=== PATIENT | female | born 1950 | race Hispanic/Latino ===

== ENCOUNTER → 2018-01-29 | Outpatient (CLI) | payer MEDICARE ==
--- NOTE | 2018-02-16 02:24 | Polysomnography ---
DATE OF STUDY: January 29, 2018 SPLIT-NIGHT POLYSOMNOGRAM REFERRING PHYSICIAN: Dr. Ramiro Loco Dictation cutoff, 00:35 seconds. ANAHI Certified in Sleep Medicine Job#: [id number]
--- NOTE | 2018-02-16 09:22 | Polysomnography ---
DATE OF STUDY: January 29, 2018 SPLIT-NIGHT POLYSOMNOGRAM REFERRING PHYSICIAN: Dr. Loco HISTORY: This is a 67-year-old female with snoring and witnessed apneas during sleep. Patient has past medical history of hypertension, hyperlipidemia. Current medications are simvastatin, diazepam, lisinopril, Lexapro. Hillman Sleepiness Scale score is 7. BMI is 28.9. Patient presents for a diagnostic polysomnogram that is later split into positive airway pressure titration. FINDINGS: During diagnostic portion of this night, the patient had 132 minutes of total sleep time with sleep efficiency of 77.2%. Sleep onset latency was achieved in 28 minutes. Patient was noted with intermittent snoring. The patient was mildly restless when awake with appearance of periodic limb movements when awake. A total of 0 apneas and 57 hypopneas were noted for apnea-hypopnea index of 25.9 events per hour. The patient slept in supine position for entirety of this diagnostic portion of the night. Lowest oxygen saturation was 90%. While there was appearance of periodic limb movements when awake, limb movements really subsided during sleep where periodic limb movement index was 6.8 events per hour of sleep. This study was split soon after discovering significant obstructive sleep apnea-hypopnea syndrome. CPAP was initiated during second half of this night at 5 cm of water pressure and incrementally increased to 10 cm of water pressure using a [employer] ComfortGel small nasal mask with heated humidifier. Additionally, EPR 3 was administered. Due to some mouth opening that ensued, the pressure was rolled back down to 8 and then 9 cm of water pressure. The entirety of the titration half was basically in supine position. At pressures of 9 cm, there were some REM-related events, but these mostly resolved at 10 cm of water. At the optimal pressure of 10 cm of water, the apnea-hypopnea index was 0 cm of water and the lowest oxygen saturation was 93%. EEG was unremarkable throughout this night. Furthermore, there was no movement disorder nor significant periodic limb movements in sleep that were noted, although there were number of limb movements that were scored that were actually REM-related limb movements (normal). Single-lead EKG analysis was unremarkable. INTERPRETATION: This was an abnormal polysomnogram/split study due to the presence of: 1. Moderate obstructive sleep apnea. This is supported by oxygen desaturations, snoring, and increased apnea-hypopnea index. Multiple factors can be contributory such as overweight status, thyroid disease, and structural/obstructive abnormalities in the upper airway. An evaluation and management of these factors associated with sleep apnea would be beneficial. 2. CPAP titration. There was significant improvement in terms of alleviation of obstructive sleep apnea at the optimal CPAP pressure of 10 cm of water delivered using a [employer] ComfortGel small nasal mask, heated humidifier, and EPR 3. The same settings are recommended for use during sleep. Of note, there mildly increased mouth opening on 10 cm of water pressure although it resolved the obstructive events more effectively. Therefore, consideration can be to decrease the pressure to 9 cm of water empirically if the patient has problems tolerating the CPAP device in the future. 3. Periodic limb movements when awake. Periodic limb movements can be associated with renal disease, electrolytes abnormalities such as hypomagnesemia , neuropathy, restless legs sydrome, iron deficiency and the use of certain medications. Clinical correlation is recommended-- as the patient is awake when these limb movements occur there should be a correlating history that can be taken in clinic. On this night there were no significant periodic limb movements during sleep, but clinical follow up should ensue to establish good resolution of sleep complaints. MD ANAHI Salazar Certified in Sleep Medicine Job#: [id number] DR HU
== END ==
LOC: SLEEP 20:00
DX: G47.33 Obstructive sleep apnea (adult) (pediatric) (principal)
CPT/HCPCS: 95811